=== PATIENT | female | born 1965 | race Caucasian/White ===

== ENCOUNTER → 2018-03-05 | Outpatient (CLI) | payer OTHER ==
[~2018-03-05] MED LIST: FISH1CAP PO; UBID50TA3 PO
[2018-03-05 15:33] LABS: BASOPHILS # (AUTO) 0.05 x10^3/uL (0-0.1); BASOPHILS % (AUTO) 1 % (0-1); EOSINOPHILS # (AUTO) 0.14 x10^3/uL (0-0.4); EOSINOPHILS % (AUTO) 2 % (1-7); LYMPHOCYTES # (AUTO) 2.93 x10^3/uL (1-3.4); LYMPHOCYTES % (AUTO) 33 % (22-44); MD NO; MEAN CORPUSCULAR HEMOGLOBIN 29.2 pg (27.0-34.8); MEAN CORPUSCULAR HGB CONC 33.4 g/dL (32.4-35.8); MEAN CORPUSCULAR VOLUME 87.5 fL (80-100); MEAN PLATELET VOLUME 7.8 fL (7.4-10.4); MONOCYTES # (AUTO) 0.51 x10^3/uL (0.2-0.8); MONOCYTES % (AUTO) 6 % (2-9); NEUTROPHILS % (AUTO) 59 % (42-75); PLATELET COUNT 343 x10^3/uL (130-400); RED BLOOD COUNT 4.41 x10^6/uL (3.82-5.3); RED CELL DISTRIBUTION WIDTH 13.4 % (9.6-15.2)
== END | disposition home or self-care (01) ==
LOC: STAR 14:35
PROVIDERS: ATTEND Obstetrics & Gynecology
DX: Z01.818 Encounter for other preprocedural examination (principal); N84.0 Polyp of corpus uteri
CPT/HCPCS: 36415; 84702; 85025; 93005

== ENCOUNTER 2018-03-11 09:19 | Day surgery (SDC) | payer OTHER ==
[~2018-03-11] VITALS: Ht 170.2 cm; Wt 108.0 kg
[~2018-03-11 09:19] MED LIST changes: +FENTANYL PF 100 MCG/2ML ONE; +MIDAZOLAM 1 MG/ML, 2ML ONE
[2018-03-11 09:48] VITALS: BP 120/76
[2018-03-11] MEDS ORDERED: SILVER NITRATE STICK TP ONE (09:56)
[2018-03-11] MEDS ORDERED: BUPIVACAINE/PF 0.25% ONE (09:57)
[2018-03-11] MEDS: ACETAMINOPHEN 500 MG TABLET PO ONE (09:58)
[2018-03-11] MEDS: LACTATED RINGERS 1,000 ML IV SCH (10:07)
[2018-03-11 10:22] LABS: HCG UR SG 1.014 (1.003-1.030)
[2018-03-11] MEDS ORDERED: DEXAMETHASONE 4 MG/ML, 1ML ONE (10:29)
[2018-03-11] MEDS ORDERED: PROPOFOL 10 MG/ML, 20ML ONE (10:29)
[2018-03-11] MEDS ORDERED: FENTANYL PF 100 MCG/2ML IV PRN (10:30)
[2018-03-11] MEDS ORDERED: MEPERIDINE/PF 25MG/0.5ML IVPush PRN (10:30)
[2018-03-11] MEDS ORDERED: MORPHINE SULFATE 4 MG/ML, 1ML IVPush PRN (10:30)
[2018-03-11] MEDS ORDERED: OXYcodone 5 MG/5 ML ORAL.SOL UDC PO PRN (10:30)
[2018-03-11] MEDS ORDERED: PROMETHAZINE 12.5 MG SUPP PR PRN (10:30)
[2018-03-11] MEDS ORDERED: ONDANSETRON ODT 8 MG PO PRN (10:30)
[2018-03-11] MEDS ORDERED: ONDANSETRON 2MG/ML, 2ML ONE (10:30)
[2018-03-11] MEDS ORDERED: HYDROmorphone 1 MG/ML, 1ML IV PRN (10:30)
[2018-03-11] MEDS ORDERED: CEFAZOLIN 1,000 MG ONE (10:33)
== END 2018-03-11 12:00 ==
LOC: OUT 09:19
PROVIDERS: ATTEND Obstetrics & Gynecology
DX: N84.0 Polyp of corpus uteri (principal); D50.9 Iron deficiency anemia, unspecified; Z88.8 Allergy status to other drugs, medicaments and biological substances
CPT/HCPCS: 58558; 81025; 88305; J0690; J1100; J2250; J2405; J2704; J3010; J7120; J3490